=== PATIENT | female | born 1975 | race Caucasian/White ===

== ENCOUNTER 2018-07-02 09:20 | Day surgery (SDC) | payer OTHER ==
[2018-07-02] VITALS (19 sets, daily range): BP systolic 74–133; BP diastolic 43–86; PULSE 50–80; RESP 12–22; Ht 170.2 cm; Wt 88.8 kg
[~2018-07-02] VITALS: Ht 170.2 cm; Wt 88.8 kg
[~2018-07-02 09:20] MED LIST: CEFAZOLIN 2 GM/50 ML (PMX) 50 ML IVPB ONE; SOD CHLORIDE 0.9% 1,000 ML IV SCH
[2018-07-02] MEDS ORDERED: ASCO500C7 PO (09:46)
[2018-07-02] MEDS ORDERED: LEVO50TA71 PO (09:46)
[2018-07-02] MEDS ORDERED: ERGO2000 PO (09:47)
[2018-07-02] MEDS ORDERED: FER325 PO (09:47)
[2018-07-02] MEDS ORDERED: BUPIVACAINE 0.25% (MPF) 30 ML INJ ONE (12:57)
--- NOTE | 2018-07-02 13:14 | PREAC ---
Date/Time of Note Date/Time of Note DATE: 07/02/18 TIME: 13:13 Anesthesia Eval and Record Evaluation Time Pre-Procedure Interview DATE: 07/02/18 TIME: 13:13 Age 43 Sex female NPO: 8 hrs Preoperative diagnosis Cholelithiasis Planned procedure Lap Cholecystectomy Past Medical History Past Medical History: Includes Endo: Hypothyroid GI: Morbid obesity Surgery & Anesthesia Issues No known issue Meds Anticoagulation: No Beta Valdemar within 24 hr: No Reason Beta Valdemar not given: Pt. not on B-Valdemar Reported Medications Ergocalciferol (Vitamin D2) (VITAMIN D2) 2,000 Unit Tablet, 2000 UNIT PO DAILY, TAB 07/02/18 Ferrous Sulfate* (Ferrous Sulfate*) 325 Mg Tabec, 325 MG PO DAILY, TAB 07/02/18 Ascorbic Acid* (Vitamin C*) 500 Mg Capsule.sa, 500 MG PO DAILY, CAP 07/02/18 Levothyroxine Sodium* (Levoxyl*) 50 Mcg Tablet, 50 MCG PO BEFORE BREAKFAST, #30 TAB 07/02/18 Current Medications Sodium Chloride 1,000 ml @ 75 mls/hr [id number] IV ; Start 07/02/18 at 09:00; Stop 07/02/18 at 22:19 Meds reviewed: Yes Allergies Coded Allergies: No Known Drug Allergies (Unverified Allergy, Unknown, 07/02/18) Allergies Reviewed: Yes Labs/Studies Labs Reviewed: Reviewed by anesthesiologist Result Diagram: 07/02/18 1005 07/02/18 1005 Laboratory Tests 07/02/18 10:05 test: Negative Studies: ECG Pre-procedure Exam Last vitals Vital Signs Date Temp Pulse Resp B/P (MAP) Pulse Ox O2 O2 Flow FiO2 Time Delivery Rate 07/02/18 97.6 80 16 133/86 96 Room Air 10:15 (102) Airway: Adequate mouth opening, Adequate thyromental dist Mallampati: Mallampati II Teeth: Normal Lung: Normal Heart: Normal ASA Physical Status ASA physical status: 3 Emergency: None Planned Anesthetic General/MAC: ETT Planned Pain Management Single shot nerve block, Parenteral pain med Pre-operative Attestations Prior to commencing anesthesia and surgery, the patient was re-evaluated, there was verification of: *The patient's identity *The results of appropriate recent lab work and preoperative vital signs *The above evaluation not changing prior to induction *Anesthetic plan, risk benefits, alternative and complications discussed with patient/family; questions answered; patient/family understands, accepts and wishes to proceed. JATINDER LOWE MD Jul 02, 2018 13:14
[2018-07-02] MEDS ORDERED: MIDAZOLAM 1 MG/ML 2 ML INJ ONE (13:17)
[2018-07-02] MEDS ORDERED: LIDOCAINE 2% (SDV) 5 ML INJ ONE (13:50)
[2018-07-02] MEDS ORDERED: GLYCOPYRROLATE 0.4 MG INJ ONE (13:50)
[2018-07-02] MEDS ORDERED: ROCURONIUM 50 MG INJ ONE (13:50)
[2018-07-02] MEDS ORDERED: PROPOFOL 20 ML ONE (13:50)
[2018-07-02] MEDS ORDERED: NEOSTIGMINE 3 MG/3 ML SYRINGE ONE (13:50)
--- NOTE | 2018-07-02 13:51 | OPR ---
Date/Time of Note Date/Time of Note DATE: 07/02/18 TIME: 13:49 Operative Report Procedure Date: Jul 02, 2018 Preoperative Diagnosis symptomatic gallstones Postoperative Diagnosis same Operation/Procedure Performed 1. laparoscopic cholecystectomy 2. subcutaneous local anesthesia injected Surgeon see signature line Duty Officer Ronnie Pittman Anesthesia Type: general Estimated Blood Loss: 0 - 10 ml's Transfusion none Specimen gallbladder Grafts/Implants none Complications none Pt Condition Post Procedure: stable Indications This is a 43-year-old female with symptomatic gallstones. Risks alternatives benefits of percent were discussed with the patient. Patient expressed understanding consents to the operation. Procedure Description Patient is taken to the OR and prepped and draped in usual sterile fashion. Surgical time was performed. IV antibiotics given. Infraumbilical incision was made with a 15 blade transversely. Dissection with cautery was carried down to the fascia. The fascia was grasped with Manns Choice's and divided with curved Gross scissors. 0 Vicryl U stitch was placed into the fascial incision. Berry trocar was introduced. Pneumoperitoneum is established. Midepigastric 12 mm optical trochars placed under direct visualization. Right upper quadrant upper flank 5 mm optical trochars were placed under direct position. Upon initial inspection there is multiple adhesions to the gallbladder which were taken down bluntly. The gallbladder was grasped in the fundus and retracted in a lateral cephalad direction. There is multiple hardened stones and contracted. [place] graspers used to dissect out the cystic duct and cystic artery. The critical view was established. The cystic duct is divided with a 35 mm echelon vascular stapler due to its thickened tissue. The cystic artery was divided to close proximally clipped distal division was performed laparoscopic scissors. The gallbladder was taken of the gallbladder bed. Good hemostasis established in the surgical bed. The gallbladder is retrieved in an Endo Catch bag. Ports removed under direct position. 0 Vicryl sutures tied down. Skin is closed and skin heather. Therapeutic contains local anesthesia was injected at the incision site. Dry dressings were applied. Hudson GARRISON Jul 02, 2018 13:51
[2018-07-02] MEDS ORDERED: CEFAZOLIN 1 GM INJ ONE (13:52)
[2018-07-02] MEDS ORDERED: ONDANSETRON 4 MG INJ ONE (13:53)
[2018-07-02] MEDS ORDERED: HYDROCODONE/APAP (5/325) TAB PO ONE (14:00)
--- NOTE | 2018-07-02 14:09 | PAC ---
Date/Time of Note Date/Time of Note DATE: 07/02/18 TIME: 14:08 Post-Anesthesia Notes Post-Anesthesia Note Last documented vital signs Vital Signs Date Temp Pulse Resp B/P (MAP) Pulse Ox O2 O2 Flow FiO2 Time Delivery Rate 07/02/18 97.6 80 16 133/86 96 Room Air 10:15 (102) Activity: WNL Respiratory function: WNL Cardiovascular function: WNL Mental status: Baseline Pain reasonably controlled: Yes Hydration appropriate: Yes Nausea/Vomiting absent: Yes Comments BP:112/67, P:88, Spo2:100%, T:98,8 JATINDER LOWE MD Jul 02, 2018 14:09
[2018-07-02] MEDS: HYDROmorphONE 1 MG/5 ML IV SYRINGE IV PRN ×2 (14:24→14:30)
[2018-07-02] MEDS ORDERED: DIPHENHYDRAMINE 50 MG INJ IV PRN (14:30)
[2018-07-02] MEDS ORDERED: HYDROmorphONE 1 MG/5 ML IV SYRINGE IV PRN (14:30)
[2018-07-02] MEDS ORDERED: METOCLOPRAMIDE 10 MG INJ IV PRN (14:30)
[2018-07-02] MEDS ORDERED: ONDANSETRON 4 MG INJ IV PRN (14:30)
[2018-07-02] MEDS ORDERED: KETOROLAC 30 MG INJ IV PRN (14:30)
[2018-07-02] MEDS ORDERED: MEPERIDINE 25 MG INJ IV PRN (14:30)
[2018-07-02] MEDS ORDERED: FENTAnyl 50 MCG/ML VIAL IV PRN (14:30)
== END 2018-07-02 17:00 | disposition home or self-care (01) ==
LOC: SDS 09:20
PROVIDERS: ATTEND Surgery
DX: K80.10 Calculus of gallbladder with chronic cholecystitis without obstruction (principal)
CPT/HCPCS: 47562; 80053; 84703; 85025; 85610; 85730; 88304; J0690; J1170; J1885; J2250; J2405; J2710; J3010; Z7512; Z7610